=== PATIENT | female | born 1955 | race Caucasian/White ===

== ENCOUNTER 2021-04-18 19:43 | Emergency (ER) | payer BC, OTHER ==
--- NOTE | 2021-04-18 20:44 | EDM.PDOC ---
ED HPI GENERAL MEDICAL PROBLEM - General Chief Complaint: Back Pain or Injury Stated Complaint: CHEST PAIN / BACK PAIN Time Seen by Provider: 04/18/21 20:22 Source of Information: Reports: Patient, RN Notes Reviewed History Limitations: Reports: No Limitations - History of Present Illness INITIAL COMMENTS - FREE TEXT/NARRATIVE: Patient is a 65-year-old female who presents to the ER for evaluation of her right-sided chest discomfort. States that around 7 PM, she was laying on her couch and she had sudden sharp intense chest discomfort on her right mid chest. She states that this immediately shot through to her right upper back, lasted for about 15 minutes, and then went away, is having some aching sensations further down into her back but states that she is chest pain-free at this time. States that she has had some increased stress in her life, notes that her mother just got put on hospice care or comfort cares at a assisted in [place], and that her father does not seem to be taking it well, and continually is calling her to tell her that her mother has . This happened about 15 minutes prior to this chest pain episode. Patient states that this very well could be anxiety, but due to the chest pain her brought her to the ER for evaluation. She has not had any chest pain like this before ever, not had any cardiac issues or lung issues. Patient denies any other sick-like symptoms, fever/chills, cough/shortness of breath, nausea/vomiting/diarrhea. - Related Data Allergies Allergy/AdvReac Type Severity Reaction Status Date / Time No Known Allergies Allergy Verified 04/18/21 20:26 Home Meds: Home Meds Levothyroxine 75 mcg PO ACBREAKFAST 04/18/21 [History] Pravastatin [Pravachol] 40 mg PO DAILY 04/18/21 [History] Past Medical History HEENT History: Reports: Impaired Vision Cardiovascular History: Reports: High Cholesterol Gastrointestinal History: Reports: Other (See Below) Other Gastrointestinal History: diverticulosis Other [employer] History: missing one ovary and tube Endocrine/Metabolic History: Reports: Hypothyroidism Other Dermatologic History: roseacea - Past Surgical History HEENT Surgical History: Reports: Adenoidectomy, Tonsillectomy Social & Family History - Tobacco Use Tobacco Use Status *Q: Never Tobacco User Second Hand Smoke Exposure: No - Caffeine Use Caffeine Use: Reports: Coffee - Recreational Drug Use Recreational Drug Use: No ED ROS GENERAL - Review of Systems Review Of Systems: Comprehensive ROS is negative, except as noted in HPI. ED EXAM, GENERAL - Physical Exam Exam: See Below Exam Limited By: No Limitations General Appearance: Alert, WD/WN, No Apparent Distress Respiratory/Chest: No Respiratory Distress, Lungs Clear, Normal Breath Sounds, No Accessory Muscle Use, Chest Non-Tender Cardiovascular: Normal Peripheral Pulses, Regular Rate, Rhythm, No Edema Peripheral Pulses: 2+: Radial (L), Radial (R) GI/Abdominal: Normal Bowel Sounds, Soft, Non-Tender, No Distention, No Mass Extremities: Normal Inspection, Normal Capillary Refill Neurological: Alert, Oriented, Normal Cognition, No Motor/Sensory Deficits Psychiatric: Normal Affect, Normal Mood Skin Exam: Warm, Dry, Intact, Normal Color, No Rash #1 Interpretation EKG Date: 04/18/21 Time: 20:53 Rhythm: NSR Rate (Beats/Min): 55 [place]: Normal P-Wave: Present QRS: Normal ST-T: Normal QT: Normal Comparison: NA - No Prior EKG EKG Interpretation Comments: No obvious ischemia or acute ST changes noted, reviewed by myself and Dr. Suh. Course - Vital Signs Last Recorded V/S: Last Vital Signs Temp 97.1 F 04/18/21 20:23 Pulse 54 L 04/18/21 20:23 Resp 16 04/18/21 20:23 BP 120/72 04/18/21 20:23 Pulse Ox 98 04/18/21 20:23 - Orders/Labs/Meds Orders: Active Orders 24 hr Category Date Time Status Chest 1V Frontal [CR] Stat Exams 04/18/21 20:40 Taken Labs: Laboratory Tests 04/18/21 04/18/21 04/18/21 Range/Units 20:50 20:50 20:50 WBC 5.98 (3.98-10.04) K/mm3 RBC 4.18 (3.98-5.22) M/mm3 Hgb 13.0 (11.2-15.7) gm/dl Hct 39.6 (34.1-44.9) % MCV 94.7 (79.4-94.8) fl MCH 31.1 (25.6-32.2) pg MCHC 32.8 (32.2-35.5) g/dl RDW Std Deviation 43.8 (36.4-46.3) fL Plt Count 218 (182-369) K/mm3 MPV 9.5 (9.4-12.3) fl Neut % (Auto) 58.7 (34.0-71.1) % Lymph % (Auto) 30.4 (19.3-51.7) % [place] % (Auto) 8.4 (4.7-12.5) % Eos % (Auto) 2.0 (0.7-5.8) Baso % (Auto) 0.3 (0.1-1.2) % Neut # (Auto) 3.51 (1.56-6.13) K/mm3 Lymph # (Auto) 1.82 (1.18-3.74) K/mm3 [place] # (Auto) 0.50 H (0.24-0.36) K/mm3 Eos # (Auto) 0.12 (0.04-0.36) K/mm3 Baso # (Auto) 0.02 (0.01-0.08) K/mm3 PT 9.9 (9.7-12.0) SECONDS INR < 0.93 APTT 21.3 L (21.7-31.4) SECONDS Sodium 142 (136-145) mEq/L Potassium 4.0 (3.5-5.1) mEq/L Chloride 105 (98-107) mEq/L Carbon Dioxide 30 (21-32) mEq/L Anion Gap 11.0 (5-15) BUN 18 (7-18) mg/dL Creatinine 0.9 (0.55-1.02) mg/dL Est Cr Clr Drug Dosing 60.60 mL/min Estimated GFR (MDRD) > 60 (>60) mL/min BUN/Creatinine Ratio 20.0 H (14-18) Glucose 93 (70-99) mg/dL Calcium 8.4 L (8.5-10.1) mg/dL Magnesium 2.1 (1.8-2.4) mg/dL Total Bilirubin 0.3 (0.2-1.0) mg/dL AST 19 (15-37) U/L ALT 42 (14-59) U/L Alkaline Phosphatase 41 L (46-116) U/L Troponin I < 0.017 (0.00-0.056) ng/mL NT-Pro-B Natriuret Pep (0-125) pg/mL Total Protein 6.8 (6.4-8.2) g/dl Albumin 3.7 (3.4-5.0) g/dl Globulin 3.1 gm/dL Albumin/Globulin Ratio 1.2 (1-2) 04/18/21 Range/Units 20:50 WBC (3.98-10.04) K/mm3 RBC (3.98-5.22) M/mm3 Hgb (11.2-15.7) gm/dl Hct (34.1-44.9) % MCV (79.4-94.8) fl MCH (25.6-32.2) pg MCHC (32.2-35.5) g/dl RDW Std Deviation (36.4-46.3) fL Plt Count (182-369) K/mm3 MPV (9.4-12.3) fl Neut % (Auto) (34.0-71.1) % Lymph % (Auto) (19.3-51.7) % [place] % (Auto) (4.7-12.5) % Eos % (Auto) (0.7-5.8) Baso % (Auto) (0.1-1.2) % Neut # (Auto) (1.56-6.13) K/mm3 Lymph # (Auto) (1.18-3.74) K/mm3 [place] # (Auto) (0.24-0.36) K/mm3 Eos # (Auto) (0.04-0.36) K/mm3 Baso # (Auto) (0.01-0.08) K/mm3 PT (9.7-12.0) SECONDS INR APTT (21.7-31.4) SECONDS Sodium (136-145) mEq/L Potassium (3.5-5.1) mEq/L Chloride (98-107) mEq/L Carbon Dioxide (21-32) mEq/L Anion Gap (5-15) BUN (7-18) mg/dL Creatinine (0.55-1.02) mg/dL Est Cr Clr Drug Dosing mL/min Estimated GFR (MDRD) (>60) mL/min BUN/Creatinine Ratio (14-18) Glucose (70-99) mg/dL Calcium (8.5-10.1) mg/dL Magnesium (1.8-2.4) mg/dL Total Bilirubin (0.2-1.0) mg/dL AST (15-37) U/L ALT (14-59) U/L Alkaline Phosphatase (46-116) U/L Troponin I (0.00-0.056) ng/mL NT-Pro-B Natriuret Pep 86 (0-125) pg/mL Total Protein (6.4-8.2) g/dl Albumin (3.4-5.0) g/dl Globulin gm/dL Albumin/Globulin Ratio (1-2) - Re-Assessments/Exams Free Text/Narrative Re-Assessment/Exam: 04/18/21 20:43 Patient presents to the ER for evaluation of right-sided chest discomfort, we will get a EKG, basic labs and a chest x-ray for evaluation, although with the patient's history, it is likely that this very well could have been anxiety induced. 04/18/21 22:11 I did review the patient's labs, but I was made aware by the nursing staff that the patient had to leave urgently, due to getting some news that her mother was in the process of passing away, so she left the ER without the labs being resulted initially. I did call the patient and make her aware of the findings, everything was within normal limits or unremarkable. Patient verbalized understanding. Departure - Departure Time of Disposition: 22:11 Disposition: Home, Self-Care 01 Condition: Good Clinical Impression: Atypical chest pain Forms: ED Department Discharge Sepsis Event Note (ED) - Evaluation Sepsis Screening Result: No Definite Risk - Focused Exam Vital Signs: Vital Signs Temp Pulse Resp BP Pulse Ox 04/18/21 20:23 97.1 F 54 L 16 120/72 98 - My Orders Last 24 Hours: My Active Orders 04/18/21 20:40 Chest 1V Frontal [CR] Stat - Assessment/Plan Last 24 Hours: My Active Orders 04/18/21 20:40 Chest 1V Frontal [CR] Stat
--- NOTE | 2021-04-19 07:04 | CR ---
this Chest: Portable view of the chest was obtained. Comparison: No prior chest imaging is available. Minimal portion of the inferior lateral costophrenic angles were not included on this study. Heart size and mediastinum are normal. Lungs are clear with no acute parenchymal change. Bony structures show nothing acute. Impression: 1. Small portion of the chest was not included on the study. 2. Nothing acute is otherwise seen on portable chest x-ray. Diagnostic code #2
== END 2021-04-18 22:00 | disposition home or self-care (01) ==
LOC: JD.ED 19:43
DX: R07.89 Other chest pain (principal); E78.00 Pure hypercholesterolemia, unspecified; E03.9 Hypothyroidism, unspecified; Z79.899 Other long term (current) drug therapy
CPT/HCPCS: 36415; 71045; 71045-26; 80053; 83735; 83880; 84484; 85025; 85610; 85730; 93005; 99285-25